=== PATIENT | male | born 1975 | race Two or more races ===

== ENCOUNTER 2017-01-05 10:08 | Emergency (ER) | payer SELFPAY ==
[2017-01-05 10:13] VITALS: BP 151/87
--- NOTE | 2017-01-05 10:30 | ER Document Report ---
HPI - HPI Patient complains to provider of: SORE THROAT, COUGH, FATIGUE Onset: Other - WEDNESDAY Onset/Duration: Gradual Quality of pain: Achy Severity: Mild Pain Level: 2 Associated Symptoms: Nonproductive cough, Sore throat, Weakness Exacerbated by: Coughing Relieved by: Denies Similar symptoms previously: Yes Recently seen / treated by doctor: No - ROS ROS below otherwise negative: Yes Systems Reviewed and Negative: Yes All other systems reviewed and negative - CONSTITUTIONAL Constitutional: REPORTS: Chills. DENIES: Fever - EENT EENT: REPORTS: Sore Throat - NEURO Neurology: DENIES: Headache - CARDIOVASCULAR Cardiovascular: DENIES: Chest pain - RESPIRATORY Respiratory: REPORTS: Coughing. DENIES: Trouble Breathing - GASTROINTESTINAL Gastrointestinal: DENIES: Abdominal Pain - URINARY Urinary: DENIES: Dysuria - MUSCULOSKELETAL Musculoskeletal: DENIES: Extremity pain - DERM Skin Color: Normal Skin Problems: None Past Medical History - General Information source: Patient - Social History Smoking Status: Current Every Day Smoker Frequency of alcohol use: Occasional Drug Abuse: None Lives with: Parents Family History: Reviewed & Not Pertinent Patient has suicidal ideation: No Patient has homicidal ideation: No - Medical History Medical History: Negative Renal/ Medical History: Denies: Hx Peritoneal Dialysis Past Surgical History: Reports: Hx Orthopedic Surgery - Immunizations Immunizations up to date: Yes Vertical Provider Document - CONSTITUTIONAL Agree With Documented VS: Yes Exam Limitations: No Limitations General Appearance: WD/WN, No Apparent Distress - INFECTION CONTROL TRAVEL OUTSIDE OF THE [place] IN LAST 30 DAYS: No - HEENT HEENT: Atraumatic, Normocephalic, Pharyngeal Erythema - NECK Neck: Normal Inspection, Supple - RESPIRATORY Respiratory: Breath Sounds Normal, No Respiratory Distress O2 Sat by Pulse Oximetry: 96 - CARDIOVASCULAR Cardiovascular: Regular Rate, Regular Rhythm - GI/ABDOMEN Gastrointestinal: Abdomen Soft - MUSCULOSKELETAL/EXTREMETIES Musculoskeletal/Extremeties: MAEW, FROM - NEURO Level of Consciousness: Awake, Alert, Appropriate - DERM Integumentary: Warm, Dry, No Rash Course - Vital Signs Vital signs: Temp Pulse Resp BP Pulse Ox 98.6 F 100 18 151/87 H 96 01/05/17 10:11 01/05/17 10:11 01/05/17 10:11 01/05/17 10:11 01/05/17 10:11 Discharge - Discharge Clinical Impression: Cough, Sore throat, Fatigue Condition: Good Disposition: HOME, SELF-CARE Additional Instructions: MEDS PRESCRIBED OTC DAYQUIL OR OTHER DECONGESTANT/ANTIHISTAMINE PUSH FLUIDS STOP SMOKING LUNGS CLEAR ON EXAM FOLLOW UP WITH YOUR PCP IF NOT BETTER 4-5 DAYS, EARLIER IF WORSENS RETURN NEEDED Prescriptions: Benzonatate [Tessalon Perles 100 mg Capsule] 100 mg PO Q8HP PRN #20 capsule PRN Reason: Azithromycin [Zithromax 250 mg Tablet] 250 mg PO ASDIR PRN #6 tablet PRN Reason: Forms: Return to Work
== END 2017-01-05 10:57 | disposition home or self-care (01) ==
LOC: ER 10:08
DX: R05 Cough (principal); J02.9 Acute pharyngitis, unspecified; R53.83 Other fatigue; R53.1 Weakness; R68.83 Chills (without fever); F17.200 Nicotine dependence, unspecified, uncomplicated
CPT/HCPCS: 99282